=== PATIENT | female | born 1995 | race Two or more races ===

== ENCOUNTER → 2021-06-03 | Outpatient (REF) | LOC: M EMP 08:30 | PROVIDERS: ATTEND Family Medicine | DX: Z20.828 Contact with and (suspected) exposure to other viral communicable diseases (principal); Z11.52 Encounter for screening for COVID-19 ==

== ENCOUNTER → 2023-03-11 | Outpatient (CLI) | payer OTHER | LOC: M WHC 07:03 | PROVIDERS: ATTEND Advanced Practice Midwife | DX: Z34.92 Encounter for supervision of normal pregnancy, unspecified, second trimester (principal); Z3A.20 20 weeks gestation of pregnancy ==

== ENCOUNTER → 2023-06-04 | Outpatient (CLI) | payer OTHER | LOC: M WHC 14:54 | PROVIDERS: ATTEND Obstetrics & Gynecology | DX: O26.843 Uterine size-date discrepancy, third trimester (principal); Z3A.32 32 weeks gestation of pregnancy ==

== ENCOUNTER → 2023-07-01 | Outpatient (REF) | payer OTHER | LOC: M PLALAB 08:14 | PROVIDERS: ATTEND Advanced Practice Midwife | DX: O34.211 Maternal care for low transverse scar from previous cesarean delivery (principal) ==

== ENCOUNTER 2023-07-27 07:01 | Inpatient (IN) | payer OTHER ==
[2023-07-27] VITALS (11 sets, daily range): BP systolic 118–158; BP diastolic 57–95; TEMP 97.9; O2SAT 95–99
[~2023-07-27] VITALS: Ht 154.9 cm; Wt 70.9 kg
[~2023-07-27 07:01] MED LIST: MULTTAB20 PO
[2023-07-27] MEDS ORDERED: HOME MED LIST COMPLETE! XX SCH (07:15)
[2023-07-27] MEDS ORDERED: LACTATED RINGER'S 1000 ML IV STA (07:17)
[2023-07-27] MEDS ORDERED: BICITRA 30ML SOLN UDC PO ONE (07:20)
[2023-07-27] MEDS ORDERED: ceFAZolin SOD 2 GM in IV 1 EA IV ONE (07:20)
[2023-07-27 08:34] LABS: HEMATOCRIT 38.4 % (36.0-47.0); HEMOGLOBIN 12.5 g/dl (12.0-15.5); MEAN CORPUSCULAR HGB CONC 32.6 g/dl (32.0-36.5); MEAN CORPUSCULAR VOLUME 85.9 fl (80.0-96.0); PLATELET COUNT, AUTOMATED 254 10^3/uL (150-450); RED BLOOD COUNT 4.47 10^6/uL (4.00-5.40); WHITE BLOOD COUNT 9.6 10^3/uL (4.0-10.0)
[2023-07-27] MEDS: LR 1,000 ML IV SCH ×6 (09:02→23:20)
[2023-07-27 09:07] LABS: URIC ACID 4.7 MG/DL (3.1-7.8)
[2023-07-27 09:09] LABS: LDH LACTATE DEHYDROGENASE 180 U/L (120-246)
[2023-07-27 09:10] LABS: ALT/SGPT 12 U/L (7.0-40); AST/SGOT 14 U/L (<34); BILIRUBIN,TOTAL 0.3 MG/DL (0.3-1.2); CREATININE FOR GFR 0.59 MG/DL (0.55-1.30); GLOMERULAR FILTRATION RATE > 60.0 (>60)
[2023-07-27 09:18] LABS: TOTAL PROTEIN,RANDOM URINE 31.8 MG/DL (0.0-14.0)
[2023-07-27] MEDS ORDERED: OXYTOCIN 30UNITS IN 0.9% NaCl 500ML IV BAG As Ordered ONE ×2 (09:43→12:27)
[2023-07-27] MEDS ORDERED: PHENYLephrine 500MCG 5ML (100MCG/ML) SYRINGE As Ordered ONE (09:43)
[2023-07-27] MEDS ORDERED: MORPHINE PRES-FREE INJ 10 MG/10 ML VIAL As Ordered ONE (09:43)
[2023-07-27] MEDS ORDERED: ePHEDrine SULFATE 25 MG/5 ML(5MG/ML) SYRINGE As Ordered ONE (09:44)
[2023-07-27] MEDS ORDERED: ONDANSETRON 4MG 2ML VIAL As Ordered ONE (10:58)
[2023-07-27] MEDS ORDERED: KETOROLAC 60MG 2ML VIAL As Ordered ONE (10:58)
[2023-07-27] MEDS ORDERED: ANUSOL HC CREAM 30GM TOP PRN (12:15)
[2023-07-27] MEDS ORDERED: MORPHINE 4 MG/ML 1ML VIAL IV PRN (12:15)
[2023-07-27] MEDS ORDERED: PERCOCET 5MG/325MG TAB PO PRN ×2 (12:15)
[2023-07-27] MEDS ORDERED: SIMETHICONE 80MG CHEW TAB PO PRN (12:15)
[2023-07-27] MEDS ORDERED: RHOGAM 300MCG (1500IU) INJ IM SCH (12:15)
[2023-07-27] MEDS ORDERED: OXYTOCIN DRIP 30 UNITS in IV 1 EA IV SCH (12:15)
[2023-07-27] MEDS ORDERED: ONDANSETRON 4MG 2ML VIAL IV PRN ×2 (12:15→12:20)
[2023-07-27] MEDS ORDERED: oxyCODONE 5MG TAB PO PRN (12:20)
[2023-07-27] MEDS ORDERED: diphenhydrAMINE 50MG/ML VIAL IV PRN (12:20)
[2023-07-27] MEDS ORDERED: PERCOCET PO (12:20)
[2023-07-27] MEDS: SLF 3 ML SYR IV SCH ×2 (12:20→19:53)
[2023-07-27] MEDS ORDERED: COLA100C5 PO (12:20)
[2023-07-27] MEDS ORDERED: **NOTE PATIENT COMMENT** MISC XX SCH (12:20)
[2023-07-27] MEDS ORDERED: NALOXONE INJ 0.4MG/1ML VIAL IV PRN ×2 (12:20)
[2023-07-27] MEDS ORDERED: HYDROMORPHONE HCL 0.5 MG/ 0.5 ML SYRINGE IV PRN (12:20)
[2023-07-27] MEDS ORDERED: fentaNYL 100 MCG/2 ML INJECTION IV PRN (12:20)
[2023-07-27] MEDS ORDERED: METOCLOPRAMIDE INJ 10MG/2ML VIAL IV PRN (12:20)
[2023-07-27] MEDS ORDERED: IBUP80TA PO (12:20)
[2023-07-27] MEDS: KETOROLAC 30 MG/ML 1ML VIAL IV SCH ×2 (17:53→23:53)
[2023-07-27] MEDS ORDERED: LR 500 ML IV SCH (18:25)
[2023-07-27] MEDS: DOCUSATE SODIUM 100MG CAPSULE PO SCH (20:30)
[2023-07-28 02:00] VITALS: BP 119/73; O2SAT 97
[2023-07-28] MEDS: SLF 3 ML SYR IV SCH (04:12)
[2023-07-28] MEDS: KETOROLAC 30 MG/ML 1ML VIAL IV SCH (05:37)
[2023-07-28 06:00] VITALS: BP 131/77; O2SAT 98
[2023-07-28 07:06] LABS: HEMATOCRIT 28.7 % (36.0-47.0); MEAN CORPUSCULAR HGB CONC 32.4 g/dl (32.0-36.5); MEAN CORPUSCULAR VOLUME 86.4 fl (80.0-96.0); PLATELET COUNT, AUTOMATED 228 10^3/uL (150-450); RED BLOOD COUNT 3.32 10^6/uL (4.00-5.40); WHITE BLOOD COUNT 11.9 10^3/uL (4.0-10.0)
[2023-07-28 07:07] LABS: HEMOGLOBIN 9.3 g/dl (12.0-15.5)
[2023-07-28] MEDS: PRENATAL VITAMINS CHEWABLE TABLET PO SCH (08:08)
[2023-07-28] MEDS: DOCUSATE SODIUM 100MG CAPSULE PO SCH ×2 (08:08→20:58)
[2023-07-28 10:00] VITALS: BP 140/71; O2SAT 98
[2023-07-28] MEDS: ACETAMINOPHEN 500 MG TAB PO PRN ×3 (11:57→23:28)
[2023-07-28 14:00] VITALS: BP 129/73; O2SAT 98
[2023-07-28] MEDS: IBUPROFEN 800 MG TAB PO SCH ×2 (14:19→20:59)
[2023-07-28 18:00] VITALS: BP 135/74; O2SAT 99
[2023-07-28 22:00] VITALS: BP 138/90; O2SAT 98
[2023-07-29 02:00] VITALS: BP 139/89; O2SAT 98
[2023-07-29] MEDS: IBUPROFEN 800 MG TAB PO SCH ×2 (05:08→13:14)
[2023-07-29 06:00] VITALS: BP 129/76; O2SAT 99
[2023-07-29] MEDS ORDERED: MEASLES,MUMPS,RUBELLA VACCINE INJ (MMR-II) SC.IMMUN ONE (09:00)
[2023-07-29] MEDS: DOCUSATE SODIUM 100MG CAPSULE PO SCH (09:22)
[2023-07-29] MEDS: PRENATAL VITAMINS CHEWABLE TABLET PO SCH (09:22)
[2023-07-29 10:00] VITALS: BP 133/79; O2SAT 100
== END 2023-07-29 13:28 | disposition home or self-care (01) | DRG 788 ==
LOC: M LDI 07:01 → M OBS 13:20
PROVIDERS: ADMIT Obstetrics & Gynecology; ATTEND Obstetrics & Gynecology
PROC: 10D00Z1 Extraction of Products of Conception, Low, Open Approach (ICD-10-PCS; principal; 2023-07-27 09:30)
DX: O48.0 Post-term pregnancy (principal); Z37.0 Single live birth; Z3A.40 40 weeks gestation of pregnancy; O34.211 Maternal care for low transverse scar from previous cesarean delivery

== ENCOUNTER 2023-11-24 07:32 | Outpatient (RCR) | payer OTHER ==
[~2023-11-24 07:32] MED LIST changes: +COLA100C5 PO; +IBUP80TA PO; +PERCOCET PO
== END 2023-11-29 ==
LOC: M PT 07:32
PROVIDERS: ATTEND Obstetrics & Gynecology
DX: M62.89 Other specified disorders of muscle (principal); M54.50 Low back pain, unspecified

== ENCOUNTER 2023-12-22 09:55 | Outpatient (RCR) | payer OTHER | END 2023-12-29 | LOC: M PT 09:55 | PROVIDERS: ATTEND Obstetrics & Gynecology | DX: M62.89 Other specified disorders of muscle (principal); M54.50 Low back pain, unspecified ==

== ENCOUNTER 2024-01-19 08:24 | Outpatient (RCR) | payer OTHER | END 2024-01-29 | LOC: M PT 08:24 | PROVIDERS: ATTEND Obstetrics & Gynecology | DX: M62.89 Other specified disorders of muscle (principal); M54.50 Low back pain, unspecified ==

== ENCOUNTER → 2024-07-06 | Outpatient (REF) | payer OTHER | LOC: M SFHCWAGY 08:33 | PROVIDERS: ATTEND Obstetrics & Gynecology | DX: Z12.4 Encounter for screening for malignant neoplasm of cervix (principal) | CPT/HCPCS: 87624; G0123 ==

== ENCOUNTER → 2024-11-10 | Outpatient (REF) | payer OTHER | LOC: M SFHCWAGY 15:26 | PROVIDERS: ATTEND Obstetrics & Gynecology | DX: N90.89 Other specified noninflammatory disorders of vulva and perineum (principal) ==

== ENCOUNTER → 2025-03-03 | Outpatient (RCR) | LOC: EDUNIT# 02-13 08:00 → M EMPSKH 02-13 08:00 | PROVIDERS: ATTEND Family Medicine | DX: Z11.52 Encounter for screening for COVID-19 (principal) ==